=== PATIENT | female | born 1965 | race Caucasian/White ===

== ENCOUNTER 2019-07-12 15:43 | Emergency (ER) | payer OTHER ==
--- OUTSIDE RECORDS SUMMARY | 2019-07-12 15:51 | XMS REPORT | Continuity of Care Document ---
:1965 External Reference #:[id number] Author Name Haley Khan MD (transmitted by agent of provider Aisha Bustillo) Address [address] [facility], [place] [address] Care Team Providers Name Role Phone Thony Schumacher MD - Vascular Care Team Information School Bus Attendant [phone] Surgery Problems Active Problems Provider Date Anxiety state Onset: 03/18/2018 Recurrent depression Onset: 03/18/2018 Panic disorder without agoraphobia Onset: 03/18/2018 Hypokalemia Onset: 03/18/2018 Sleep related bruxism Onset: 03/18/2018 Malignant neoplasm of nipple and areola of female breast Onset: 03/18/2018 Gastroesophageal reflux disease Onset: 03/18/2018 Atrophic vaginitis Onset: 03/18/2018 Insomnia Onset: 03/18/2018 History of bariatric surgical procedure Onset: 03/18/2018 Gastro-esophageal reflux disease with esophagitis Onset: 03/18/2018 Exercise induced bronchospasm Onset: 01/29/2019 Cervical spondylosis with radiculopathy Onset: 01/29/2019 Altered mental status Onset: 01/29/2019 Essential hypertension Onset: 10/24/2018 Atrial fibrillation Onset: 10/24/2018 Chronic hyperglycemia Onset: 10/24/2018 Vitamin D deficiency Onset: 07/17/2018 Chronic hypokalemia Onset: 07/17/2018 Chronic diarrhea of unknown origin Onset: 07/17/2018 Moderate recurrent major depression Onset: 03/19/2018 Obstructive sleep apnea syndrome Onset: 03/19/2018 Esophageal hiatus hernia repair Onset: 05/07/2015 History of calculus of kidney Onset: 05/07/2013 Malignant tumor of breast Onset: 04/06/2008 Fibromyalgia Onset: 05/07/1998 Social History Type Date Description Comments Sex Unknown Tobacco Use Start: Unknown Never Smoked Cigarettes ETOH Use Rarely consumes alcohol Tobacco Use Reviewed: 02/10/16 Patient has never smoked Recreational Drug Use Never Used Drugs Smoking Status Reviewed: 07/08/19 Patient has never smoked Exercise Type/Frequency Exercises regularly Exercise Type/Frequency Walks daily Tattoo/Piercing Pierced ears Tattoo/Piercing Tattoo right foot, right ankle, right arm, upper back, left leg Allergies, Adverse Reactions, Alerts Active Allergies Reaction Severity Comments Date Anastrozole Myalgias (muscle pain) Moderate 05/07/2019 Adhesives Contact dermatitis 05/10/2018 Inactive Allergies NKDA 04/14/2014 Medications Active Medications SIG Qnty Indications Ordering Provider Date Buspirone HCL take 1 tablet by 60tabs F41.9 Ney 03/14/2018 30mg mouth twice a MD Heath Tablets day Potassium Chloride ER 3 tablets in in 180caps E87.6 Ney 06/26/2017 the morning and MD Heath 10Meq Capsules ER 3 tablets in at night Vitamin D 2000 Iu per day Unknown Multivitamin Unknown Venlafaxine HCL ER take 1 capsule 30caps Anamaria Becerrakins, daily PRESSURE TEST OPERATOR-Cde 150mg Caps ER 24HR Immunizations CPT Code Status Date Vaccine Lot # [id number] Given 10/24/2018 Tdap - Tetanus/Diptheria/Acellular Pertussis [id number] Given 02/04/2018 Influenza Virus Vaccine, Quadrivalent, Split, Im Use 6-35mo [id number] Given Unknown Zoster (Shingles) Vaccine (HZV), Recombinant, Subunit, Adjuvanted Vital Signs Date Vital Result Comment 07/08/2019 2:58pm Height 63.75 inches 5'3.75" Weight 211.00 lb Heart Rate 81 /min BP Systolic 131 mmHg BP Diastolic 90 mmHg Respiratory Rate 18 /min Body Temperature 97.9 F BMI (Body Mass Index) 36.5 kg/m2 01/29/2019 12:00am Height 63.75 inches Weight 206.00 lb BP Systolic 130 mmHg BP Diastolic 90 mmHg BMI (Body Mass Index) 35.6 kg/m2 Results Test Acquired Date Facility Test Result H/L Range Note Basic Metabolic 06/23/2019 [facility] Sodium 140 mmol/L Normal 135-[address] [place] [address] [phone] Potassium 4.4 mmol/L Normal 3.5-5.0 Chloride 106 mmol/L Normal 101-111 Co2 Carbon Dioxide 28 mmol/L Normal 22-32 Anion Gap 6 mmol/L Normal 2-11 Glucose 112 mg/dL High 70-100 Blood Urea Nitrogen 14 mg/dL Normal 6-24 Creatinine 0.74 mg/dL Normal 0.51-0.95 BUN/Creatinine Ratio 18.9 Normal 8-20 Calcium 9.1 mg/dL Normal 8.6-10.3 Egfr Non- 82.1 >60 Egfr 99.3 >60 1 Laboratory test 06/23/2019 [facility] Hemoglobin A1c 5.8 % High 4.0-5.[address] (Glyco HGB) [place] [address] [phone] 1 Because ethnic data is not always readily available, this report includes an eGFR for both -Americans and non- Americans. The National Kidney Disease Education Program (NKDEP) does not endorse the use of the MDRD equation for patients that are not between the ages of 18 and 70, are , have extremes of body size, muscle mass, or nutritional status, or are non- or non-. According to the National Kidney Foundation, irrespective of diagnosis, the stage of the disease is based on the level of kidney function: Stage Description GFR(mL/min/1.73 m(2)) 1 Kidney damage with normal or decreased GFR 90 2 Kidney damage with mild decrease in GFR 60-89 3 Moderate decrease in GFR 30-59 4 Severe decrease in GFR 15-29 5 Kidney failure <15 (or dialysis) 2 Therapeutic target for the treatment of diabetes mellitus patients is <7% HBA1C, and in selective patients <6.0%. Please refer to [place] [employer] diabetic care guidelines for further information. Procedures Date Code Description Status 01/15/2019 53402 EKG, Interpretation Only Completed 01/14/2019 39461 ECHO Transthoracic, Real-Time 2D With Doppler And Completed Color Flow 10/02/2017 [id number] Bone Mineral Density Test Completed Medical Devices Description No Information Available Encounters Description No Information Available Assessments Date Code Description Provider 07/08/2019 M35.3 Polymyalgia Haley Khan MD 07/08/2019 R73.01 Impaired fasting glycaemia Haley Khan MD 07/08/2019 R03.0 Elevated blood-pressure reading Haley Khan MD without diagnosis of hypertension 07/08/2019 F41.8 Mixed anxiety and depressive disorder Haley Khan MD 07/08/2019 M25.519 Shoulder joint pain Haley Khan MD 01/15/2019 R41.82 Altered mental status, unspecified Mireya Zhang M.D. 01/14/2019 R06.02 Shortness of breath Coby Blood M.D. 01/14/2019 R06.02 Shortness of breath Traveling ECHO 2 Plan of Treatment Future Appointment(s):10/27/2019 2:30 pm - Haley Khan MD at [facility]07/08/2019 - Haley Khan, MDM35.3 PolymyalgiaComments:given UE pain and weakness and fatigue will check labs, if elevated send to rheumatology , pt will monitor, her MRI was normal labs year so doubt MSFollow up:f/u at [facility] in or so, labs in advance, she should call for labs before her appt.R73.01 Impaired fasting glycaemiaComments:stable, recheck in three months, discussed WFPB diet and gave iesymalC76.0 Elevated blood-pressure reading without diagnosis of hypertensionComments:elevated today, she will send me several oxvxwxomB00.8 Mixed anxiety and depressive disorderComments:she feels it is well controlled at this time, does not feel the need for therapy at this timeM25.519 Shoulder joint painComments:has been to PT in the past and will go do her PT exercises that she has for her right shoulder, she declines PT referral. Functional Status Description No Information Available Mental Status Description No Information Available Referrals Description No Information Available
[2019-07-12 15:58] VITALS: BP 128/89
[2019-07-12] MEDS ORDERED: Ibuprofen TAB* 600 MG PO ONE (16:05)
--- NOTE | 2019-07-12 16:06 | UC ---
Truncal Trauma HPI - HPI Summary HPI Summary: Right sided posterior rib/ flank pain onset s/p fall down flight of stairs. Pt was recovering until today when pt sneezed and pt had sudden onset of extreme pain. - History Of Current Complaint Chief Complaint: UCChestPain Stated Complaint: RIB INJURY Time Seen by Provider: 07/12/19 15:49 Hx Obtained From: Patient Hx Last Menstrual Period: 2008 Onset/Duration: Sudden Onset, Lasting Days, Worse Since - sneezing today Onset Of Pain: Immediate Severity Initially: Moderate Severity Currently: Moderate Pain Intensity: 4 Mechanism Of Injury: Direct Blow Aggravating Factor(s): Cough Alleviating factor(s): Nothing Associated Signs And Symptoms: Positive: Negative - Allergies/Home Medications Allergies/Adverse Reactions: Allergies Allergy/AdvReac Type Severity Reaction Status Date / Time Adhesive Tape Allergy Blisters Verified 07/12/19 15:59 Home Medications: Home Medications Cholecalciferol TAB* [Vitamin D TAB*] 1,000 unit PO DAILY 01/01/19 [History Confirmed 07/12/19] Venlafaxine ER (NF) [Effexor ER (NF)] 150 mg PO DAILY 01/01/19 [History Confirmed 07/12/19] Vitamin THERAPEUTIC TAB* [Theragran TAB*] 1 tab PO DAILY 01/01/19 [History Confirmed 07/12/19] Zolpidem TAB* [Ambien*] 5 mg PO BEDTIME PRN 01/01/19 [History Confirmed 07/12/19 ] buPROPion TAB* [Wellbutrin TAB*] 75 mg PO BID 01/01/19 [History Confirmed ] Aspirin [Aspir-Low] 81 mg PO DAILY 07/12/19 [History Confirmed 07/12/19] Cyclobenzaprine TAB* [Flexeril 10 MG TAB*] 10 mg PO TID PRN #15 tab 07/12/19 [Rx ] PMH/Surg Hx/FS Hx/Imm Hx Previously Healthy: Yes - Surgical History Surgical History: Yes Surgery Procedure, Year, and Place: Esophageal Hiatal Herniarrhaphy and Gastic Bypass, 2015, [place]; Hysterectomy, 2009, [place]; Bilateral Mastectomy and Reconstruction(TRAM), 2007, [place]; A. fib cardiac Ablation, [place] Other Surgical History: Ablation- for fast heart beat.-2010, total hysterectomy 2009, bilateral mastectomy-2007, osteopenia, truncal lymphedema, kidney stones. - Family History Known Family History: Positive: Hypertension, Diabetes - Social History Alcohol Use: Occasionally Substance Use Type: None Smoking Status (MU): Former Smoker - Immunization History Most Recent Tetanus Shot: UNKNOWN Immunizations Comment: possibly allergic to diptheria vac Review of Systems All Other Systems Reviewed And Are Negative: Yes Musculoskeletal: Positive: Arthralgia, Myalgia Is Patient Immunocompromised?: No Physical Exam Triage Information Reviewed: Yes Appearance: Well-Appearing, Well-Nourished, Pain Distress Vital Signs: Initial Vital Signs Temp 98.3 F 07/12/19 15:51 Pulse 75 07/12/19 15:51 Resp 18 07/12/19 15:51 BP 128/89 07/12/19 15:51 Pulse Ox 96 07/12/19 15:51 Vital Signs Reviewed: Yes Eye Exam: Normal ENT Exam: Normal Dental Exam: Normal Neck exam: Normal Respiratory Exam: Normal Respiratory: Positive: Chest non-tender, Lungs clear, Normal breath sounds Cardiovascular Exam: Normal Abdominal Exam: Normal Bowel Sounds: Positive: Present Musculoskeletal: Positive: Strength Intact, ROM Intact - but painful Neurological Exam: Normal Psychological Exam: Normal Skin Exam: Normal Truncal Trauma Course/Dx - Course Course Of Treatment: hx obtained, exam performed ,meds reviewed, ibuprofen given, heat pack applied, xray obtained. positive for rib fracture - Differential Dx/Diagnosis Differential Diagnosis/HQI/PQRI: Chest Wall Contusion, Rib Fracture Provider Diagnosis: Closed rib fracture Discharge ED - Sign-Out/Discharge Documenting (check all that apply): Patient Departure All imaging exams completed and their final reports reviewed: Yes - Discharge Plan Condition: Stable Disposition: HOME Prescriptions: Cyclobenzaprine TAB* [Flexeril 10 MG TAB*] 10 mg PO TID PRN #15 tab PRN Reason: Spasms Patient Education Materials: Rib Fracture (ED) Referrals: Haley Whitfield MD [Primary Care Provider] - Additional Instructions: 1. use the flexeril for spams as prescribed 2. Heat the area as much as needed 3. Gentle movement and stretching as tolerated 4. Follow up with any increased respiratory symptoms 5. it is important to do deep breathing a few each hour to prevent setting infection in the lungs 6. ibuprofen and tylenol for pain - Billing Disposition and Condition Condition: STABLE Disposition: Home
== END 2019-07-12 17:05 | disposition home or self-care (01) ==
LOC: UCCORT 15:43
DX: S22.31XA Fracture of one rib, right side, initial encounter for closed fracture (principal); Z91.09 Other allergy status, other than to drugs and biological substances; Z79.82 Long term (current) use of aspirin; Z87.891 Personal history of nicotine dependence; W10.9XXA Fall (on) (from) unspecified stairs and steps, initial encounter; Y92.9 Unspecified place or not applicable
CPT/HCPCS: 99212; A9270-GY; G0463